=== PATIENT | male | born 1985 | race Caucasian/White ===

== ENCOUNTER 2016-09-29 09:43 | Emergency (ER) | payer SELFPAY ==
[2016-09-29 11:15] VITALS: BP 140/81
[2016-09-29] MEDS ORDERED: NACL 0.9% 1000 ML 1,000 ML IV ONE (12:30)
[2016-09-29] MEDS ORDERED: TYLENOL PO ONE ×2 (12:31→13:03)
--- NOTE | 2016-09-29 12:33 | Emergency Department Report ---
ED General Adult HPI - General Chief complaint: Pain General Stated complaint: PHYSICAL PAIN Time Seen by Provider: 09/29/16 12:20 Source: patient Mode of arrival: Ambulatory Limitations: No Limitations - History of Present Illness Initial comments: [place]; patient is homeless and traveling to [place] and doesn't have a ride; here today because has been having general muscle aches and pains, worse in bilateral legs and feet, which he says has blisters; denies recent trauma or injuries, back pain, CP and SOB -: Gradual, days(s) (2) Location: back, lower extremity Radiation: non-radiation Severity scale (0 -10): 7 Quality: aching, other (cramping) Consistency: constant Improves with: immobilization, rest Worsens with: movement Associated Symptoms: denies other symptoms, weakness. denies: confusion, chest pain, diaphoresis, headaches, malaise, nausea/vomiting, shortness of breath, syncope Treatments Prior to Arrival: none - Related Data Allergies Allergy/AdvReac Type Severity Reaction Status Date / Time No Known Allergies Allergy Unverified 09/29/16 11:15 ED Review of Systems ROS: Stated complaint: PHYSICAL PAIN Other details as noted in HPI Constitutional: no symptoms reported. denies: chills, fever, malaise, weakness Respiratory: no symptoms reported. denies: cough, orthopnea, shortness of breath, SOB with exertion, SOB at rest, wheezing Cardiovascular: denies: chest pain, palpitations, dyspnea on exertion, orthopnea , edema Gastrointestinal: denies: abdominal pain, nausea, vomiting, diarrhea, constipation Genitourinary: denies: frequency, hematuria Musculoskeletal: back pain, arthralgia, myalgia. denies: joint swelling Skin: denies: rash, lesions Neurological: denies: headache, weakness, abnormal gait ED Physical Exam - General Limitations: No Limitations General appearance: alert, in no apparent distress - Head Head exam: Present: atraumatic, normocephalic, normal inspection - Eye Eye exam: Present: normal appearance, PERRL, EOMI Pupils: Present: normal accommodation - ENT ENT exam: Present: normal exam - Neck Neck exam: Present: normal inspection, full ROM. Absent: tenderness - Respiratory Respiratory exam: Present: normal lung sounds bilaterally. Absent: respiratory distress, wheezes, rales, rhonchi, stridor, chest wall tenderness, accessory muscle use, decreased breath sounds, prolonged expiratory - Cardiovascular Cardiovascular Exam: Present: regular rate, normal rhythm, normal heart sounds - GI/Abdominal GI/Abdominal exam: Present: soft. Absent: distended, tenderness, guarding, rebound, rigid - Extremities Exam Extremities exam: Present: tenderness (TTP over bilateral lower leg muscles and mild TTP over bilateral thighs and feet; calloused skin on plantar aspect of bilateral feet; no erythema or edema present), other (bilateral knees - nontender, no edema or erythema, full ROM present). Absent: pedal edema, joint swelling - Back Exam Back exam: Present: normal inspection, full ROM. Absent: tenderness, CVA tenderness (R), CVA tenderness (L), paraspinal tenderness, vertebral tenderness - Neurological Exam Neurological exam: Present: alert, oriented X3, normal gait - Psychiatric Psychiatric exam: Present: normal affect - Skin Skin exam: Present: warm, dry, intact, normal color. Absent: pallor ED Course Vital Signs 09/29/16 11:11 Temperature 97.6 F Pulse Rate 107 H Respiratory 16 Rate Blood Pressure 140/81 O2 Sat by Pulse 100 Oximetry - Reevaluation(s) Reevaluation #1: 09/29/16 13:38 Patient declined NS and tylenol Reevaluation #2: 09/29/16 13:58 Tech saw patient walk out of room at 1349 and he didn't return, eloped Reevaluation #3: 09/29/16 14:00 I attempted to find patient in waiting room, fast track area and in ambulance bay outside, unsuccessful, patient was not found ED Medical Decision Making - Lab Data Result diagrams: 09/29/16 12:35 09/29/16 12:35 Critical care attestation.: If time is entered above; I have spent that time in minutes in the direct care of this critically ill patient, excluding procedure time. ED Disposition Clinical Impression: Rhabdomyolysis Qualifiers: Rhabdomyolysis type: non-traumatic Qualified Code(s): M62.82 - Rhabdomyolysis Disposition: ELOPED Is pt being admited?: No Condition: Stable Referrals: PRIMARY CARE,MD [Primary Care Provider] - 3-5 Days
[2016-09-29 13:04] LABS: Hematocrit 46.8 % (35.5-45.6); Hemoglobin 15.9 gm/dl (11.8-15.2); Mean Corpuscular HGB Conc 34 % (32-34); Mean Corpuscular Hemoglobin 31 pg (28-32); Mean Corpuscular Volume 91 fl (84-94); Platelet Count 249 K/mm3 (140-440); Red Blood Count 5.17 M/mm3 (3.65-5.03); Red Cell Distribution Width 13.2 % (13.2-15.2); White Blood Count 15.2 K/mm3 (4.5-11.0)
[2016-09-29 13:29] LABS: BUN/Creatinine Ratio 22.66; Calcium 9.1 mg/dL (8.4-10.2); Chloride 88.7 mmol/L (98-107)
[2016-09-29 13:58] LABS: Basophils % (Auto) 0.4 % (0.0-1.8); Eosinophils % (Auto) 1.5 % (0.0-4.3); Hematocrit 46.4 % (35.5-45.6); Mean Corpuscular HGB Conc 34 % (32-34); Mean Corpuscular Hemoglobin 31 pg (28-32); Mean Corpuscular Volume 90 fl (84-94); Platelet Count 260 K/mm3 (140-440); Red Blood Count 5.13 M/mm3 (3.65-5.03); Red Cell Distribution Width 13.2 % (13.2-15.2); White Blood Count 14.8 K/mm3 (4.5-11.0)
== END 2016-09-29 14:35 | disposition left against medical advice (07) ==
LOC: ED 09:43
DX: M62.82 Rhabdomyolysis (principal)
CPT/HCPCS: 36415; 80048; 82550; 85025; 85027; 99283; J7030